=== PATIENT | male | born 1985 | race Caucasian/White ===

== ENCOUNTER 2017-10-05 19:54 | Emergency (ER) | payer BC ==
[2017-10-05 20:46] VITALS: BP 141/87
[2017-10-05] MEDS ORDERED: Meclizine TAB* 12.5 MG PO ONE ×3 (21:24)
--- NOTE | 2017-10-05 21:49 | UC ---
Dizzy HPI HPI Summary: 32 yo male was fine when he woke up this AM about 11 AM had the acute onset of vertigo worse with change of head position or going from sitting to standing no ear ache no tinnitis no ANGELO has had nasal congestion and post nasal drip as thes symptoms persisted during the day he became increasingly distressed by his symptom since early afternoon he has has a fast and stong heart beat chest feels odd but no true pain - History Of Current Complaint Chief Complaint: UCDizziness Stated Complaint: ELEVATED BP/DIZZY/LIGHTHEADED Time Seen by Provider: 10/05/17 21:09 Hx Obtained From: Patient Onset/Duration: Sudden Onset, Lasting Hours Timing: Constant Severity Initially: Severe Severity Currently: Moderate Pain Intensity: 1 Character: Head Spinning, Room Spinning, Dizzy Aggravating Factor(s): Position Change, Supine To Erect, Change In Head Position Alleviating Factor(s): Other - position Associated Signs And Symptoms: Positive: Nausea, Palpitations, Unsteady Gait. Negative: Vomiting, Diaphoresis, Tinnitus, Chest Pain, SOB, Visual Changes, Decreased Oral Intake, Change In Medication, Change In Diet, OTC Medications - Allergies/Home Medications Allergies/Adverse Reactions: Allergies Allergy/AdvReac Type Severity Reaction Status Date / Time No Known Allergies Allergy Verified 10/05/17 20:40 Home Medications: Home Medications Meloxicam(NF) [Mobic(NF)] 15 mg PO DAILY PRN 10/05/17 [History Confirmed ] Metaxalone TAB* [Skelaxin TAB*] 800 mg PO TID PRN 10/05/17 [History Confirmed ] PMH/Surg Hx/FS Hx/Imm Hx Previously Healthy: Yes Cardiovascular History: Hypertension - Surgical History Surgical History: Yes Surgery Procedure, Year, and Place: vasectomy september 2015 - Family History Known Family History: Positive: Hypertension - Social History Alcohol Use: Occasionally Substance Use Type: None Smoking Status (MU): Heavy Every Day Tobacco Smoker Amount Used/How Often: 1 PPD Length of Time of Smoking/Using Tobacco: Since Age 14 Household Exposure Type: Cigarettes Review of Systems Constitutional: Negative Skin: Negative Eyes: Negative ENT: Nasal Discharge, Sinus Congestion Respiratory: Negative Cardiovascular: Palpitations Gastrointestinal: Nausea Genitourinary: Negative Motor: Negative Neurovascular: Negative Musculoskeletal: Negative Neurological: Negative Psychological: Anxious Is Patient Immunocompromised?: No All Other Systems Reviewed And Are Negative: Yes Physical Exam Triage Information Reviewed: Yes Appearance: Well-Appearing, No Pain Distress, Well-Nourished Vital Signs: Initial Vital Signs Temp 99.4 F 10/05/17 20:41 Pulse 104 10/05/17 20:41 Resp 18 10/05/17 20:41 BP 141/87 10/05/17 20:41 Pulse Ox 100 10/05/17 20:41 Vital Signs Reviewed: Yes Eyes: Positive: Conjunctiva Clear, Other: - eomi/perrl, fundi benign, no nystagmus ENT: Positive: Hearing grossly normal, Nasal congestion, TM dull, Uvula midline. Negative: Nasal drainage, Tonsillar swelling, Tonsillar exudate, Trismus, Muffled voice, Hoarse voice, Dental tenderness, Sinus tenderness Neck: Positive: Supple, Nontender, No Lymphadenopathy Respiratory: Positive: Lungs clear, Normal breath sounds, No respiratory distress, No accessory muscle use Cardiovascular: Positive: RRR, No Murmur Musculoskeletal: Positive: ROM Intact, No Edema Neurological: Positive: Alert Psychological Exam: Normal Skin Exam: Normal Diagnostics - EKG Cardiac Rate: NL Cardiac Rhythm: Sinus: Normal Ectopy: None ST Segment: Normal Dizzy Course/Dx - Differential Dx/Diagnosis Provider Diagnoses: vertigo-suspect labrinthitis. anxiety-palpitations Discharge - Discharge Plan Condition: Stable Disposition: HOME Prescriptions: Meclizine HCl [Meclizine 25] 25 mg PO QID PRN #20 tab PRN Reason: Vertigo Patient Education Materials: Palpitations (ED), Vertigo (ED) Forms: *Work Release Referrals: Cyn BARBOZA,Yana Vargas [Primary Care Provider] - As Soon As Possible
[2017-10-06 11:06] LABS: ABS Basophils 0.1 10^3/ul (0-0.2); ABS Eosinophils 0.1 10^3/ul (0-0.6); ABS Lymphocytes 3.6 10^3/ul (1.0-4.8); ABS Monocytes 1.2 10^3/ul (0-0.8); ABS Neutrophils 8.5 10^3/ul (1.5-7.7); ABS Nucleated RBC 0 10^3/ul; Eosinophil % 0.9 % (0-6); Hematocrit 48 % (42-52); Hemoglobin 16.4 g/dl (14.0-18.0); Lymphocyte % 26.6 % (25-47); Mean Corpuscular HGB Conc 34 g/dl (31-36); Mean Corpuscular Hemoglobin 30 pg (27-31); Mean Corpuscular Volume 88 fL (80-94); Mean Platelet Volume 10 um3 (7.4-10.4); Nucleated Red Blood Cells % 0.1; Platelet Count 287 10^3/ul (150-450); Red Blood Count 5.49 10^6/ul (4.0-5.4); Red Cell Distribution Width 13 % (10.5-15); White Blood Count 13.4 10^3/ul (3.5-10.8)
[2017-10-06 11:41] LABS: EGFR Non-African American 129.9 (>60)
--- NOTE | 2017-10-07 08:15 | UC ---
- Progress Note Progress Note: reviewed CBC - pt with slight elevate of wbc count, no shift, no bands cmp reviewed - no concerning j 10/07/2017
== END 2017-10-05 21:51 | disposition home or self-care (01) ==
LOC: UCCORT 19:54
DX: R42 Dizziness and giddiness (principal); R00.2 Palpitations; F41.9 Anxiety disorder, unspecified; Z72.89 Other problems related to lifestyle; Z87.891 Personal history of nicotine dependence
CPT/HCPCS: 36415; 80048; 85025; 93005; 99212; A9270-GY; G0463

== ENCOUNTER 2019-02-11 17:11 | Emergency (ER) | payer OTHER ==
--- OUTSIDE RECORDS SUMMARY | 2019-02-11 17:19 | XMS REPORT | Continuity of Care Document ---
:1985 External Reference #:[id number] Author Name Ron Torres M.D. Address [address] [facility] [address] [place] [address] Care Team Providers Name Role Phone HCP given Primary Care Physician Unavailable Payers Date Identification Numbers Payment Provider Subscriber Effective: 2018 Policy Number: [id number] [facility] Jovan Bee PayID: [id number] [address] [place] [address] Advance Directives Description No Information Available Problems Active Problems Provider Date Essential hypertension Yana Addison PA Onset: 10/08/2016 Tobacco user Yana Addison PA Onset: 10/08/2016 Obesity Yana Addison PA Onset: 07/22/2018 Hypertriglyceridemia Yana Addison PA Onset: 01/19/2019 Prediabetes Yana Addison PA Onset: 01/19/2019 Family History Date Family Member(s) Observation Comments Father Alcoholism Father Asthma Father Diabetes, Nos Father ID Paternal Grandmother Diabetes, Nos Social History Type Date Description Comments Sex Unknown Education Highest Level Completed Trade School Marital Status Lives With Lives With Sons x2 Diet Negative For Healthy, Well Balanced Occupation Drives a [employer] Work Status Currently Working Hand Dominance 01/19/2019 Right-handed Tobacco Use Reviewed: 01/19/19 Current Cigarette 1/2 ppd as of Smoker 1 Pack Daily 01/19/19 3/4 ppd as of 07/22/18 1/2 ppd as of 08/26/17 1 ppd since 1999 Smoking Status Reviewed: 01/21/19 Current Cigarette 1/2 ppd as of Smoker 1 Pack Daily 01/19/19 3/4 ppd as of 07/22/18 1/2 ppd as of 08/26/17 1 ppd since 1999 ETOH Use Occassional Alcohol Recreational Drug Use Former Drug User 2000 he tried cocaine, ecstasy, cannabis, nothing since then Tobacco Use Start: Unknown Patient is a current smoker, smokes every day Exercise Type/Frequency Exercises rarely Sun Exposure Uses sunscreen Seat Belt/Car Seat always uses seat belt Guns in Home Yes, Locked Up Smoke Alarms Yes smoke alarm Currently Active Patient is currently sexually active Age [address] [place] 17 Years Old # Partners in a Lifetime Partners 1-5 Additional Info Sexual preference is women Allergies, Adverse Reactions, Alerts Description No Known Drug Allergies Medications Active Medications SIG Qnty Indications Ordering Date Provider Ciclopirox apply to affected 19.8ml B35.1 Ron Torres, 01/19/2019 8% nails twice a day M.D. Solution Nicotrol inhale every 2 168units F17.210 Ron Torres, 01/19/2019 10mg Inhaler hours as needed M.D. for cravings Meclizine HCL take 1 tablet by 20tabs Unknown 10/05/2017 25mg mouth four times Tablets daily as needed for vertigo Lisinopril take 1 tablet by 30tabs I10 Ron Torres, 08/26/2017 40mg mouth every day M.D. Tablets for high blood pressure Meloxicam take one tablet 30tabs M54.5 Ron Torres, 08/26/2017 15mg by mouth every M.D. Tablets day for back pain Metaxalone Take One Tablet 90tabs M54.5 Ron Torres, 08/26/2017 800mg By Mouth Three M.D. Tablets Times A Day as Needed For Spasms Lotrisone apply to affected 45gm B35.3 Ron Torres, 07/08/2016 1-0.05% areas twice a day M.D. Cream until resolved Multi Complete once a day Unknown Capsules History Medications Amoxicillin 1 tab by mouth 20tabs J01.90 Brian, 10/06/2017 - 875mg Tablets twice a day x10 Elinor Velasquez 10/16/2017 days Chantix Continuing use as directed 60tabs Yana Addison, 11/18/2016 - Month Loy on package PA 01/18/2019 1mg Tablets Lisinopril 1 tab po daily 30tabs I10 Yana Addison, 10/08/2016 - 20mg Tablets for high blood PA 08/26/2017 pressure Meloxicam Take One Tablet 60tabs M54.5 Brian, 10/08/2016 - 7.5mg Tablets By Mouth Up To Elinor Velasquez 08/26/2017 Two Times A Day as Needed For Back Pain, DO Not Use Along With Aleve Or Ibuprofen Chantix Starting Month use as directed 53tabs F17.210 Brian, 07/08/2016 - Loy on package Elinor Velasquez 01/18/2019 0.5mg X 11 & 1 mg X 42 Tablets Lisinopril 1 by mouth every 30tabs I10 Yana Addison, 06/05/2016 - 10mg Tablets day PA 10/08/2016 Magox 400 2 tablets every 360tabs Selwyn Samuels, 09/28/2015 - 400(241.3mg) mg night at bedtime D.O. 06/04/2016 Tablets as directed Vitamin B Complex 1 by mouth twice Selwyn Samuels, 09/28/2015 - daily D.O. 06/04/2016 Tablets Vitamin D3 Maximum 1 by mouth every 90caps Selwyn Samuels, 09/28/2015 - Strength day D.O. 06/04/2016 5000Unit Capsules Cyclobenzaprine HCL 1 by mouth three M54.5 Unknown 05/24/2015 - 10mg times a day as 08/26/2017 Tablets needed as needed for muscle spasms. Naproxen 1 tab once a day Unknown - 500mg Tablets with food 10/07/2016 Immunizations CPT Code Status Date Vaccine Lot # U-[id number] Given 06/18/2017 Influenza,Unspecified Vital Signs Date Vital Result Comment 01/19/2019 9:40am BP Systolic 136 mmHg BP Diastolic 84 mmHg Height 74.5 inches 6'2.50" Weight 328.00 lb BMI (Body Mass Index) 41.5 kg/m2 07/22/2018 10:33am BP Systolic 126 mmHg BP Diastolic 86 mmHg Height 74.5 inches 6'2.50" Weight 317.00 lb BMI (Body Mass Index) 40.2 kg/m2 12/01/2017 9:45am BP Systolic 120 mmHg BP Diastolic 78 mmHg Weight 304.00 lb 10/06/2017 11:29am BP Systolic 118 mmHg BP Diastolic 68 mmHg Body Temperature 98.0 F Height 74.50 inches 6'2.50" Weight 305.00 lb BMI (Body Mass Index) 38.6 kg/m2 08/26/2017 9:06am BP Systolic 122 mmHg BP Diastolic 70 mmHg Weight 305.00 lb 10/08/2016 9:08am BP Systolic 148 mmHg BP Diastolic 70 mmHg Weight 300.00 lb 07/08/2016 9:32am BP Systolic 120 mmHg BP Diastolic 80 mmHg Weight 308.00 lb with flip flops 06/05/2016 2:34pm BP Systolic 152 mmHg BP Diastolic 90 mmHg Height 75.5 inches 6'3.50" with boots Weight 3165.00 lb with boots BMI (Body Mass Index) 390.3 kg/m2 09/20/2015 9:52am BP Systolic 130 mmHg BP Diastolic 84 mmHg Weight 312.00 lb with sneakers 07/23/2015 3:04pm BP Systolic 130 mmHg BP Diastolic 90 mmHg Height 75.25 inches 6'3.25" Weight 315.00 lb BMI (Body Mass Index) 39.1 kg/m2 Results Test Date Facility Test Result H/L Range Note Lipid Profile 01/10/2019 [facility] Triglycerides 382 mg/dL 1 (Trig/Chol/HDL) [phone] Cholesterol 147 mg/dL 2 HDL Cholesterol 26.7 mg/dL 3 LDL Cholesterol 44 mg/dL 4 Comp Metabolic Panel 01/10/2019 [facility] Sodium 137 mmol/L N 135- 145 [phone] Potassium 4.4 mmol/L N 3.5-5.0 Chloride 105 mmol/L N 101-111 Co2 Carbon Dioxide 28 mmol/L N 22-32 Anion Gap 4 mmol/L N 2-11 Glucose 99 mg/dL N 70-100 Blood Urea Nitrogen 11 mg/dL N 6-24 Creatinine 0.69 mg/dL N 0.67-1.17 BUN/Creatinine Ratio 15.9 N 8-20 Calcium 9.2 mg/dL N 8.6-10.3 Total Protein 7.0 g/dL N 6.4-8.9 Albumin 4.3 g/dL N 3.2-5.2 Globulin 2.7 g/dL N 2-4 Albumin/Globulin Ratio 1.6 N 1-3 Total Bilirubin 0.40 mg/dL N 0.2-1.0 Alkaline Phosphatase 95 U/L N 34-104 Alt 47 U/L N 7-52 Ast 26 U/L N 13-39 Egfr Non- 131.3 >60 Egfr 158.8 >60 5 Laboratory test 01/10/2019 [facility] Hemoglobin A1c 6.1 % High 4.0- 5.6 6 finding [phone] (Glyco HGB) Urinalysis Profile 01/10/2019 [facility] Urine Color Yellow [phone] Urine Appearance Turbid Urine Specific [place] 1.021 N 1.010-1.030 Urine pH 5.0 N 5-9 Urine Urobilinogen Negative Negative Urine Ketones Negative Negative Urine Protein Negative Negative Urine Leukocytes Negative Negative Urine Blood Negative Negative Urine Nitrite Negative Negative Urine Bilirubin Negative Negative Urine Glucose Negative Negative Comp Metabolic Panel 11/23/2017 [facility] Sodium 136 mmol/L N 133- 145 [phone] Potassium 4.3 mmol/L N 3.5-5.0 Chloride 104 mmol/L N 101-111 Co2 Carbon Dioxide 27 mmol/L N 22-32 Anion Gap 5 mmol/L N 2-11 Glucose 94 mg/dL N 70-100 Blood Urea Nitrogen 15 mg/dL N 6-24 Creatinine 0.68 mg/dL N 0.67-1.17 BUN/Creatinine Ratio 22.1 High 8-20 Calcium 9.4 mg/dL N 8.6-10.3 Total Protein 6.8 g/dL N 6.4-8.9 Albumin 4.3 g/dL N 3.2-5.2 Globulin 2.5 g/dL N 2-4 Albumin/Globulin Ratio 1.7 N 1-3 Total Bilirubin 0.50 mg/dL N 0.2-1.0 Alkaline Phosphatase 88 U/L N 34-104 Alt 30 U/L N 7-52 Ast 18 U/L N 13-39 Egfr Non- 134.3 >60 Egfr 172.7 >60 7 Laboratory test 11/23/2017 [facility] Hemoglobin A1c 5.7 % High 4.0- 5.6 8 finding [phone] (Glyco HGB) TSH (Thyroid Stim Horm) 1.38 mcIU/mL N 0.34-5.60 Vitamin B12 346 pg/mL N 180-914 9 Vitamin D Total 25(Oh) 20.8 ng/mL N 20-50 CBC Auto Diff 10/05/2017 [facility] White Blood 13.4 10^3/uL High 3.5 -10.8 10 [phone] Count Red Blood Count 5.49 10^6/uL High 4.0-5.4 Hemoglobin 16.4 g/dL N 14.0-18.0 Hematocrit 48 % N 42-52 Mean Corpuscular Volume 88 fL N 80-94 Mean Corpuscular Hemoglobin 30 pg N 27-31 Mean Corpuscular HGB Conc 34 g/dL N 31-36 Red Cell Distribution Width 13 % N 10.5-15 Platelet Count 287 10^3/uL N 150-450 Mean Platelet Volume 10 um3 N 7.4-10.4 Abs Neutrophils 8.5 10^3/uL High 1.5-7.7 Abs Lymphocytes 3.6 10^3/uL N 1.0-4.8 Abs Monocytes 1.2 10^3/uL High 0-0.8 Abs Eosinophils 0.1 10^3/uL N 0-0.6 Abs Basophils 0.1 10^3/uL N 0-0.2 Abs Nucleated RBC 0 10^3/uL Granulocyte % 63.0 % N 38-83 Lymphocyte % 26.6 % N 25-47 Monocyte % 8.7 % N 1-9 Eosinophil % 0.9 % N 0-6 Basophil % 0.8 % N 0-2 Nucleated Red Blood Cells % 0.1 Basic Metabolic Panel 10/05/2017 [facility] Sodium 134 mmol/L N 133- 145 [phone] Potassium 4.1 mmol/L N 3.5-5.0 Chloride 100 mmol/L Low 101-111 Co2 Carbon Dioxide 28 mmol/L N 22-32 Anion Gap 6 mmol/L N 2-11 Glucose 134 mg/dL High 70-100 Blood Urea Nitrogen 15 mg/dL N 6-24 Creatinine 0.70 mg/dL N 0.67-1.17 BUN/Creatinine Ratio 21.4 High 8-20 Calcium 9.7 mg/dL N 8.6-10.3 11 Egfr Non- 129.9 >60 Egfr 167.0 >60 12 CBC Auto Diff 09/20/2015 [facility] White Blood 11.5 10^3/uL High 3.5 -10.8 [phone] Count Red Blood Count 5.55 10^6/uL High 4.0-5.4 Hemoglobin 15.9 g/dL N 14.0-18.0 Hematocrit 49 % N 42-52 Mean Corpuscular Volume 88 fL N 80-94 Mean Corpuscular Hemoglobin 29 pg N 27-31 Mean Corpuscular HGB Conc 32 g/dL N 31-36 Red Cell Distribution Width 13 % N 10.5-15 Platelet Count 289 10^3/uL N 150-450 Mean Platelet Volume 9 um3 N 7.4-10.4 Abs Neutrophils 8.2 10^3/uL High 1.5-7.7 Abs Lymphocytes 2.2 10^3/uL N 1.0-4.8 Abs Monocytes 0.9 10^3/uL High 0-0.8 Abs Eosinophils 0.1 10^3/uL N 0-0.6 Abs Basophils 0 10^3/uL N 0-0.2 Abs Nucleated RBC 0 10^3/uL N Granulocyte % 71.6 % N 38-83 Lymphocyte % 19.2 % Low 25-47 Monocyte % 7.8 % N 1-9 Eosinophil % 1.0 % N 0-6 Basophil % 0.4 % N 0-2 Nucleated Red Blood Cells % 0 N Comp Metabolic Panel 09/20/2015 [facility] Sodium 138 mmol/L N 133- 145 [phone] Potassium 4.0 mmol/L N 3.5-5.0 Chloride 103 mmol/L N 101-111 Co2 Carbon Dioxide 27 mmol/L N 22-32 Anion Gap 8 mmol/L N 2-11 Glucose 83 mg/dL N 70-100 Blood Urea Nitrogen 14 mg/dL N 6-24 Creatinine 0.78 mg/dL N 0.67-1.17 BUN/Creatinine Ratio 17.9 N 8-20 Calcium 9.6 mg/dL N 8.6-10.3 Total Protein 7.0 g/dL N 6.4-8.9 Albumin 4.4 g/dL N 3.2-5.2 Globulin 2.6 g/dL N 2-4 Albumin/Globulin Ratio 1.7 N 1-3 Total Bilirubin 0.60 mg/dL N 0.2-1.0 Alkaline Phosphatase 89 U/L N 34-104 Alt 41 U/L N 7-52 Ast 26 U/L N 13-39 Egfr Non- 116.9 N >60 Egfr 150.3 N >60 13 Laboratory test finding 09/20/2015 [facility] Magnesium 1.9 mg/dL N 1.9-2.7 [phone] Vitamin B12 272 pg/mL N 180-914 14 Vitamin D Total 25(Oh) 15.5 ng/mL Low 30-50 TSH (Thyroid Stim Horm) 1.60 ?IU/mL N 0.34-5.60 1 Desirable: <150 Borderline High: 150-199 High: 200-499 Very High: >500 2 Desirable: <200 Borderline High: 200-239 High: >239 3 Low: <40 Desirable: 40-60 High: >60 4 Desirable: <100 Near Optimal: 100-129 Borderline High: 130-159 High: 160-189 Very High: >189 5 Because ethnic data is not always readily available, this report includes an eGFR for both -Americans and non- Americans. The National Kidney Disease Education Program (NKDEP) does not endorse the use of the MDRD equation for patients that are not between the ages of 18 and 70, are , have extremes of body size, muscle mass, or nutritional status, or are non- or non-. According to the National Kidney Foundation, irrespective of diagnosis, the stage of the disease is based on the level of kidney function: Stage Description GFR(mL/min/1.73 m(2)) 1 Kidney damage with normal or decreased GFR 90 2 Kidney damage with mild decrease in GFR 60-89 3 Moderate decrease in GFR 30-59 4 Severe decrease in GFR 15-29 5 Kidney failure <15 (or dialysis) 6 Therapeutic target for the treatment of diabetes mellitus patients is <7% HBA1C, and in selective patients <6.0%. Please refer to [employer] diabetic care guidelines for further information. 7 Because ethnic data is not always readily available, this report includes an eGFR for both -Americans and non- Americans. The National Kidney Disease Education Program (NKDEP) does not endorse the use of the MDRD equation for patients that are not between the ages of 18 and 70, are , have extremes of body size, muscle mass, or nutritional status, or are non- or non-. According to the National Kidney Foundation, irrespective of diagnosis, the stage of the disease is based on the level of kidney function: Stage Description GFR(mL/min/1.73 m(2)) 1 Kidney damage with normal or decreased GFR 90 2 Kidney damage with mild decrease in GFR 60-89 3 Moderate decrease in GFR 30-59 4 Severe decrease in GFR 15-29 5 Kidney failure <15 (or dialysis) 8 Therapeutic target for the treatment of diabetes mellitus patients is <7% HBA1C, and in selective patients <6.0%. Please refer to [employer] diabetic care guidelines for further information. 9 Normal Range 180 to 914 Indeterminate Range 145 to 180 Deficient Range <145 10 [id number] Specimen Lipemic. Result may not be valid. 12 Because ethnic data is not always readily available, this report includes an eGFR for both -Americans and non- Americans. The National Kidney Disease Education Program (NKDEP) does not endorse the use of the MDRD equation for patients that are not between the ages of 18 and 70, are , have extremes of body size, muscle mass, or nutritional status, or are non- or non-. According to the National Kidney Foundation, irrespective of diagnosis, the stage of the disease is based on the level of kidney function: Stage Description GFR(mL/min/1.73 m(2)) 1 Kidney damage with normal or decreased GFR 90 2 Kidney damage with mild decrease in GFR 60-89 3 Moderate decrease in GFR 30-59 4 Severe decrease in GFR 15-29 5 Kidney failure <15 (or dialysis) 13 Because ethnic data is not always readily available, this report includes an eGFR for both -Americans and non- Americans. The National Kidney Disease Education Program (NKDEP) does not endorse the use of the MDRD equation for patients that are not between the ages of 18 and 70, are , have extremes of body size, muscle mass, or nutritional status, or are non- or non-. According to the National Kidney Foundation, irrespective of diagnosis, the stage of the disease is based on the level of kidney function: Stage Description GFR(mL/min/1.73 m(2)) 1 Kidney damage with normal or decreased GFR 90 2 Kidney damage with mild decrease in GFR 60-89 3 Moderate decrease in GFR 30-59 4 Severe decrease in GFR 15-29 5 Kidney failure <15 (or dialysis) 14 Normal Range 180 to 914 Indeterminate Range 145 to 180 Deficient Range <145 Procedures Date Code Description Status 10/08/2016 32804 Destruction Of Skin Lesions Up To 14 Flat Warts/Molluscum Completed Contag Encounters Type Date Location Provider Dx Diagnosis Office Visit 01/19/2019 Main Office Yana Addison PA I10 Essential ( primary) 9:20a hypertension E66.9 Obesity, unspecified F17.210 Nicotine dependence, cigarettes, uncomplicated B35.1 Tinea unguium R73.03 Prediabetes E78.1 Pure hyperglyceridemia Office Visit 07/22/2018 10:05a Main Office Yana Addison PA Z00.00 Encntr for general adult medical exam w/o abnormal findings E66.9 Obesity, unspecified I10 Essential (primary) hypertension M54.5 Low back pain F17.210 Nicotine dependence, cigarettes, uncomplicated Office Visit 12/01/2017 9:45a Main Office Yana Addison PA I10 Essential (primary) hypertension F17.210 Nicotine dependence, cigarettes, uncomplicated M54.5 Low back pain B07.9 Viral wart, unspecified Office Visit 10/06/2017 11:25a Main Office Yana Addison PA R42 Dizziness and giddiness J01.90 Acute sinusitis, unspecified F17.210 Nicotine dependence, cigarettes, uncomplicated I10 Essential (primary) hypertension R73.09 Other abnormal glucose Office Visit 08/26/2017 9:00a Main Office Yana Addison PA I10 Essential (primary) hypertension M54.5 Low back pain E66.3 Overweight F17.210 Nicotine dependence, cigarettes, uncomplicated Office Visit 10/08/2016 9:00a Main Office aYna Addison PA I10 Essential (primary) hypertension M54.5 Low back pain B07.9 Viral wart, unspecified F17.210 Nicotine dependence, cigarettes, uncomplicated M79.641 Pain in right hand Office Visit 07/08/2016 9:25a Main Office Yana Addison PA I10 Essential (primary) hypertension F17.210 Nicotine dependence, cigarettes, uncomplicated B35.3 Tinea pedis Office Visit 06/05/2016 2:15p Main Office Yana Addison I10 Essential ( primary) PA hypertension Office Visit 09/20/2015 9:30a Main Office Selwyn Samuels, M54.5 Low back pain D.O. M79.1 Myalgia M51.36 Other intervertebral disc degeneration, lumbar region M51.34 Other intervertebral disc degeneration, thoracic region Office Visit 07/23/2015 3:20p Main Office Aleida Delgado, RPA-C E66.3 Overweight Z72.0 Tobacco use M54.5 Low back pain Z01.818 Encounter for other preprocedural examination Z68.39 Body mass index (BMI) 39.0-39.9, adult Z30.09 Encounter for oth general coun and advice on contraception Plan of Treatment Future Appointment(s):04/27/2019 9:00 am - Yana Addison PA at Main [facility]3609/2017 - Yana Addison, PAZ00.00 Encounter for general adult medical examination without abnoComments:32 year old male. Screening updated.E66.9 Obesity, unspecifiedComments:Discussed diet and exercise for weight loss.I10 Essential (primary) hypertensionComments:Good control on current meds, continue same.Follow up:schedule 6 month BP f/uM54.5 Low back painComments:Continue meloxicam and metaxalone. Work on home exercises.F17.210 Nicotine dependence, cigarettes, uncomplicatedComments:Smoking cessation counseling <10 minutes done today. Pt has Chantix at home but hasn't started ityet.
[2019-02-11 17:29] VITALS: BP 124/81
--- NOTE | 2019-02-11 17:35 | UC ---
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 This was last evening, he had no specific injury however states throughout the night and today he's had some right forearm pain and was able only work 2 hours today. He does have an appointment with [facility] on Thursday for a recheck. - History of Current Complaint Chief Complaint: UCUpperExtremity Stated Complaint: arm injury Time Seen by Provider: 02/11/19 17:34 Hx Obtained From: Patient ?: No Onset/Duration: Gradual Onset Severity Initially: Mild Severity Currently: Mild Pain Intensity: 2 Location Of Pain: Is Discrete @ - Right forearm just below the elbow. Character: Dull, Aching Aggravating Factor(s): Movement, Lifting Alleviating Factor(s): Rest Associated Signs And Symptoms: Positive: Negative - Allergies/Home Medications Allergies/Adverse Reactions: Allergies Allergy/AdvReac Type Severity Reaction Status Date / Time No Known Allergies Allergy Verified 10/05/17 20:40 Home Medications: Home Medications Acetaminophen [Tylenol] 1,000 mg 02/11/19 [History] Ibuprofen [Ibu] 800 mg PO 02/11/19 [History] PMH/Surg Hx/FS Hx/Imm Hx Previously Healthy: Yes Cardiovascular History: Hypertension - Surgical History Surgical History: Yes Surgery Procedure, Year, and Place: vasectomy september 2015 - Family History Known Family History: Positive: Hypertension - Social History Alcohol Use: Occasionally Substance Use Type: None Smoking Status (MU): Heavy Every Day Tobacco Smoker Amount Used/How Often: 1 PPD Length of Time of Smoking/Using Tobacco: Since Age 14 Household Exposure Type: Cigarettes Review of Systems All Other Systems Reviewed And Are Negative: Yes Skin: Positive: Negative Musculoskeletal: Positive: Other: - Mild pain just below the right elbow/at the proximal forearm. He denies any numbness or tingling. Physical Exam Triage Information Reviewed: Yes Appearance: Well-Appearing, No Pain Distress, Well-Nourished Vital Signs: Initial Vital Signs Temp 98.0 F 02/11/19 17:23 Pulse 82 02/11/19 17:23 Resp 16 02/11/19 17:23 BP 124/81 02/11/19 17:23 Pulse Ox 98 02/11/19 17:23 Vital Signs Reviewed: Yes Musculoskeletal: Positive: Strength Intact, ROM Intact - Good peripheral pulses neuro sensation capillary refill, good finger strength with flexion extension against resistance, good shoulder and elbow stability, mild pain on palpation to the proximal forearm, no bruising, erythema, deformity or swelling. Neurological Exam: Normal Psychological Exam: Normal Skin Exam: Normal Upper Extremity Course/Dx - Course Course Of Treatment: Patient was comfortable here. I believe he has an overuse tendinitis of his right forearm. He preferred an arm sling and he is going to apply ice over the next 24 hours and then he can apply heat. He was given a prescription for Motrin and he does have an appointment at [facility] for a recheck prior to return to work on Thursday. - Differential Dx/Diagnosis Provider Diagnosis: Tendonitis of elbow or forearm Discharge - Sign-Out/Discharge Documenting (check all that apply): Patient Departure All imaging exams completed and their final reports reviewed: No Studies - Discharge Plan Condition: Fair Disposition: HOME Prescriptions: Ibuprofen TAB* [Motrin TAB* 600 MG] 600 mg PO Q8H PRN #20 tab PRN Reason: Pain Patient Education Materials: Tendinitis (ED) Referrals: Cyn BARBOZA,Yana Vargas [Primary Care Provider] - Additional Instructions: Use the arm sling for comfort, take her arm out and put through range of motion several times during the day. Take Motrin every 8 hours with food as needed for pain. You may apply ice to the sore area over the next day and then may apply heat. Avoid movements that cause pain. Follow-up with [facility] as previously scheduled for Thursday. - Billing Disposition and Condition Condition: FAIR Disposition: Home
== END 2019-02-11 18:17 | disposition home or self-care (01) ==
LOC: UCEAST 17:11
DX: M77.9 Enthesopathy, unspecified (principal); I10 Essential (primary) hypertension; F17.210 Nicotine dependence, cigarettes, uncomplicated
CPT/HCPCS: 99212; G0463

== ENCOUNTER 2019-03-03 19:02 | Emergency (ER) | payer OTHER ==
[2019-03-03 19:13] VITALS: BP 131/78
--- NOTE | 2019-03-03 19:54 | ED ---
Abdominal Pain/Male - HPI Summary HPI Summary: 33 yr old male with left sided abdominal pain. Onset 3 am, and was severe located in LLQ of abdomen, and associated with nausea. he states his pain presently is 5/10, and associated with one episode of diarrhea today. No vomiting. he has not urinated today. He denies prior abdominal surgeries. He experience brief cramps in the left hand fingers prior to being seen, but these are completely gone. He has had no pain in his arm or chest. no SOB and no cough. - History of Current Complaint Chief Complaint: UCAbdominalPain Stated Complaint: LEFT SIDE ABD PAIN/LEFT ARM CRAMP Time Seen by Provider: 03/03/19 19:14 Pain Intensity: 5 - Allergies/Home Medications Allergies/Adverse Reactions: Allergies Allergy/AdvReac Type Severity Reaction Status Date / Time No Known Allergies Allergy Verified 03/03/19 19:08 PMH/Surg Hx/FS Hx/Imm Hx Endocrine/Hematology History: Reports: Hx Diabetes - prediabetic Denies: Hx Thyroid Disease Cardiovascular History: Reports: Hx Hypertension Denies: Hx Pacemaker/ICD Respiratory History: Denies: Hx Asthma, Hx Chronic Obstructive Pulmonary Disease (COPD) GI History: Denies: Hx Ulcer History: Denies: Hx Renal Disease Sensory History: Denies: Hx Hearing Aid Psychiatric History: Denies: Hx Panic Disorder - Surgical History Surgery Procedure, Year, and Place: vasectomy september 2015 Infectious Disease History: No Infectious Disease History: Denies: Hx Hepatitis, Hx Human Immunodeficiency Virus (HIV), History Other Infectious Disease, Traveled Outside the [place] in Last 30 Days - Family History Known Family History: Positive: Hypertension - Social History Occupation: Employed Full-time Lives: With Family Alcohol Use: Rare Substance Use Type: Reports: None Smoking Status (MU): Heavy Every Day Tobacco Smoker Amount Used/How Often: 1 PPD Length of Time of Smoking/Using Tobacco: Since Age 14 Review of Systems Constitutional: Negative Positive: Abdominal Pain, Nausea All Other Systems Reviewed And Are Negative: Yes Physical Exam Triage Information Reviewed: Yes Vital Signs On Initial Exam: Initial Vitals Temp Pulse Resp BP Pulse Ox 97.5 F 81 20 131/78 100 03/03/19 19:09 03/03/19 19:09 03/03/19 19:09 03/03/19 19:09 03/03/19 19:09 Vital Signs Reviewed: Yes Appearance: Positive: Well-Appearing, No Pain Distress, Obese Skin: Positive: Warm, Skin Color Reflects Adequate Perfusion Head/Face: Positive: Normal Head/Face Inspection Eyes: Positive: EOMI, BAO ENT: Positive: Normal ENT inspection Neck: Positive: Nontender Respiratory/Lung Sounds: Positive: Clear to Auscultation, Breath Sounds Present Cardiovascular: Positive: RRR. Negative: Murmur Abdomen Description: Positive: Other: - tender in the LLQ on palpation of the abdomen. Male Genital Exam: Negative: Hernia Mass, Inguinal Tenderness Musculoskeletal: Positive: Strength/ROM Intact Neurological: Positive: Sensory/Motor Intact, Alert, Oriented to Person Place, Time, CN Intact II-III, Normal Gait, Speech Normal Psychiatric: Positive: Normal - Avril Coma Scale Best Eye Response: 4 - Spontaneous Best Motor Response: 6 - Obeys Commands Best Verbal Response: 5 - Oriented Coma Scale Total: 15 Diagnostics - Vital Signs Vital Signs Temp Pulse Resp BP Pulse Ox 03/03/19 19:09 97.5 F 81 20 131/78 100 - Laboratory Lab Statement: Any lab studies that have been ordered have been reviewed, and results considered in the medical decision making process. - EKG 03/03/19 Cardiac Rate: NL - 78 EKG Rhythm: Sinus Rhythm ST Segment: Normal Ectopy: None Abdominal Pain Male Course/Dx - Course Course Of Treatment: 33 yr old with abdominal tenderness. TO ER for further evaluation. - Diagnoses Provider Diagnoses: Abdominal pain, left lower quadrant Discharge - Sign-Out/Discharge Documenting (check all that apply): Patient Departure All imaging exams completed and their final reports reviewed: No Studies - Discharge Plan Condition: Good Disposition: HOME-RECOMMEND TO ED Patient Education Materials: Acute Abdominal Pain (ED) Referrals: Yana Addison PA [Primary Care Provider] - Additional Instructions: Go to the ER for further evaluation of your abdominal pain. Do not delay going. - Billing Disposition and Condition Condition: GOOD Disposition: Home-Recommend to ED
== END 2019-03-03 19:58 | disposition home health service (06) ==
LOC: UCCORT 19:02
DX: R10.32 Left lower quadrant pain (principal); F17.210 Nicotine dependence, cigarettes, uncomplicated
CPT/HCPCS: 93005; 99212; G0463

== ENCOUNTER 2019-08-27 15:39 | Emergency (ER) | payer OTHER ==
--- NOTE | 2019-08-27 16:26 | UC ---
Throat Pain/Nasal Roger HPI - HPI Summary HPI Summary: 33 y/o male presents to the urgent care c/o sinus congestion w/ yellowish nasal discharge, sinus pressure for the past 2-3 days. He has taken OTC medication, but symptoms worsen this morning w/ severe Rt ear pain and pressure. He denies fever, but had felt hot. Pain is 8/10 on his RT ear. He has not taken any medication to alleviate pain or symptoms. Pt denies tinnitus, dizziness, cough, chest pain, SOB, wheezing, abdominal pain, N/V/D. - History of Current Complaint Stated Complaint: RIGHT EARACHE/SORE THROAT Time Seen by Provider: 08/27/19 16:24 Hx Obtained From: Patient Onset/Duration: Gradual Onset, Lasting Days - 2 days, Still Present, Worse Since - this morning Severity: Moderate Pain Intensity: 8 Pain Scale Used: 0-10 Numeric Cough: None Associated Signs & Symptoms: Positive: Sinus Discomfort, Nasal Discharge - yellowish, Other - Rt ear pain. Negative: Wheezing, Hoarseness, Fever, Rash - Epiglottits Risk Factors Epiglottis Risk Factors: Negative - Allergies/Home Medications Allergies/Adverse Reactions: Allergies Allergy/AdvReac Type Severity Reaction Status Date / Time No Known Allergies Allergy Verified 08/27/19 16:22 PMH/Surg Hx/FS Hx/Imm Hx Previously Healthy: Yes Cardiovascular History: Hypertension - Surgical History Surgical History: Yes Surgery Procedure, Year, and Place: vasectomy september 2015 - Family History Known Family History: Positive: Hypertension, Diabetes - Social History Occupation: Employed Full-time Lives: With Family Alcohol Use: Rare Substance Use Type: None Smoking Status (MU): Heavy Every Day Tobacco Smoker Amount Used/How Often: 1 PPD Length of Time of Smoking/Using Tobacco: Since Age 14 Household Exposure Type: Cigarettes Review of Systems All Other Systems Reviewed And Are Negative: Yes Constitutional: Positive: Negative Skin: Positive: Negative Eyes: Positive: Negative ENT: Positive: Ear Ache - Rt ear pain and pressure, Nasal Discharge - yellowish , Sinus Congestion, Sinus Pain/Tenderness, Other - PND Respiratory: Positive: Negative Cardiovascular: Positive: Negative Gastrointestinal: Positive: Negative Genitourinary: Positive: Negative Motor: Positive: Negative Neurovascular: Positive: Negative Musculoskeletal: Positive: Negative Neurological: Positive: Negative Psychological: Positive: Negative Is Patient Immunocompromised?: No Physical Exam - Summary Physical Exam Summary: Vitals: reviewed General: Well developed, well-nourished male patient with NAD. Head and face: Normocephalic and atraumatic, Positive tenderness over the frontal and maxillary sinuses.. Eyes: PERRLA, EOMI x 2. Normal conjunctiva. No eye discharge. ENT: Rt external ear canal impacted w/ cerumen unable to visualize Rt TM, LF external ear canl clear, LF TM WNL, no perforation. Ears and TM with normal limits. Nose: edematous and erythematous nasal mucosa with with yellowish discharge and erythematous mucosa. Pharynx with erythema, no exudate. yellowish PND Neck: Supple, no JVD, no carotid bruits and no lymphadenopathy. Lungs: clear, no rales, no rhonchi, no wheezes. CVS: RRR, S1 and S2 present no murmurs or gallops appreciated. Abdomen: soft nontender with positive bowel sounds. Extremities: no edema noted. Neuro: WNL. Skin: warm and dry Triage Information Reviewed: Yes Throat Pain/Nasal Course/Dx - Course Course Of Treatment: 33 y/o male presents to the urgent care c/o sinus congestion w/ yellowish nasal discharge, sinus pressure for the past 2-3 days. He has taken OTC medication, but symptoms worsen this morning w/ severe Rt ear pain and pressure. He denies fever, but had felt hot. Pain is 8/10 on his RT ear. He has not taken any medication to alleviate pain or symptoms. Pt denies tinnitus, dizziness, cough, chest pain, SOB, wheezing, abdominal pain, N/V/D. Hx obtained. Pt w/ Rt external ear canal impacted w/ cerumen and RT anterior cervical and preauricular lymphadenopathy ans sinusitis on examination. RT ear irrigation ordered. Irrigation performed by Nurse. Pt tolerated well procedure w/o any adverse effect. Left external w/ erythema and yellowish purulent discharge, LF TM injected w/ erythema, no light reflex, no perforation. Pt will be Tx for Otitis externa and Media. Pt Rx Amoxicillin PO and Cortisporin otic drops. Advised to continue w/ flonase nasal spray and take Ibuprofen PO to alleviate symptoms. Pt advised if not improvement of symptoms in 2-3 days to return to the clinic or f/u w/ her PCP for further treatment. Pt understood and agreed w/ plan of care. - Differential Dx/Diagnosis Differential Diagnosis/HQI/PQRI: Influenza, Laryngitis, Otitis Media, Pharyngitis, Sinusitis, URI Provider Diagnosis: Right otitis media, Right otitis externa, Right ear impacted cerumen, Sinusitis Discharge ED - Sign-Out/Discharge Documenting (check all that apply): Patient Departure - D/C home All imaging exams completed and their final reports reviewed: No Studies - Discharge Plan Condition: Stable Disposition: HOME Prescriptions: Amoxicillin PO (*) [Amoxicillin 875 MG (*)] 875 mg PO BID #20 tab Neomyc/Polym/HC 1% OTIC SUSP* [Cortisporin Otic Susp 1%*] 4 drop RIGHT EAR TID # 1 btl Patient Education Materials: Sinusitis (ED), Ear Infection (ED) Referrals: Yana Addison PA [Primary Care Provider] - 3 Days Additional Instructions: 1- Please increase fluid intake and rest. take full course of antibiotics to avoid resistance. Take yogurts w/ probiotics or Culturelle to protect your GI system 2-Use Flonase nasal spray you have at [facility] as directed to help drain fluid. Also buy saline drops to clear sinuses 3-Apply Cortisporin otic drops on your Rt ear as directed to alleviate symptoms. 4-Please f/u w/ your PCP in 3 days if symptoms do not improve for further management and treatment - Billing Disposition and Condition Condition: STABLE Disposition: Home
[2019-08-27 16:27] VITALS: BP 135/81
[2019-08-27] MEDS ORDERED: Ibuprofen TAB* 400 MG PO ONE (16:39)
[2019-08-27 16:57] LABS: Influenza A Molecular NEGATIVE (Negative); Influenza B Molecular NEGATIVE (Negative)
== END 2019-08-27 17:29 | disposition home or self-care (01) ==
LOC: UCCORT 15:39
DX: J32.9 Chronic sinusitis, unspecified (principal); H61.21 Impacted cerumen, right ear; H66.91 Otitis media, unspecified, right ear; H60.91 Unspecified otitis externa, right ear; I10 Essential (primary) hypertension; F17.210 Nicotine dependence, cigarettes, uncomplicated
CPT/HCPCS: 99213; A9270-GY; G0463